=== PATIENT | male | born 2000 | race African-American/Black ===

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

== ENCOUNTER 2020-07-11 16:13 | Emergency (ER) | payer OTHER ==
[~2020-07-11] VITALS: Ht 175.3 cm; Wt 72.6 kg
[2020-07-11 16:44] VITALS: BP 129/66
== END 2020-07-11 18:39 | disposition left against medical advice (07) ==
LOC: EDSEX 16:13 → ER 16:13
DX: M25.571 Pain in right ankle and joints of right foot (principal); Z53.21 Procedure and treatment not carried out due to patient leaving prior to being seen by health care provider